=== PATIENT | female | born 1995 | race Caucasian/White ===

== ENCOUNTER → 2017-08-27 | Emergency (ER) | payer OTHER ==
[~2017-08-27] VITALS: Ht 160 cm; Wt 72.6 kg
[~2017-08-27] MED LIST: DICLOFENAC SODI50 MG PO; LOTRISONE CREAM45 GM TOP; PEPCID40 MG; PEPCID40 MG PO; PERCOCET 5/3251 TAB PO; PHENERGAN25 MG PO
== END | disposition home or self-care (01) ==
LOC: ER 22:48
DX: K52.89 Other specified noninfective gastroenteritis and colitis (principal); R10.84 Generalized abdominal pain; T62.8X1A Toxic effect of other specified noxious substances eaten as food, accidental (unintentional), initial encounter; Y92.89 Other specified places as the place of occurrence of the external cause

== ENCOUNTER 2017-11-07 21:46 | Emergency (ER) | payer OTHER ==
[~2017-11-07] VITALS: Ht 160 cm; Wt 77.1 kg
[2017-11-08] MEDS ORDERED: PEPCID40 MG PO (00:42)
[2017-11-08] MEDS ORDERED: ZOFRAN4 MG PO (00:42)
[2017-11-08] MEDS ORDERED: CEFTIN250 MG/5 M PO ×2 (00:42)
== END 2017-11-08 00:51 | disposition home or self-care (01) ==
LOC: ER 21:46
DX: K52.9 Noninfective gastroenteritis and colitis, unspecified (principal); R30.0 Dysuria

== ENCOUNTER 2018-02-16 19:19 | Emergency (ER) | payer OTHER ==
[~2018-02-16] VITALS: Ht 160 cm; Wt 73.5 kg
[~2018-02-16 19:19] MED LIST changes: +CEFTIN250 MG/5 M PO; +ZOFRAN4 MG PO
[2018-02-16] MEDS ORDERED: ZYRTEC10 M3 (19:42)
== END 2018-02-16 22:17 | disposition home or self-care (01) ==
LOC: ER 19:19
DX: J06.9 Acute upper respiratory infection, unspecified (principal)

== ENCOUNTER 2019-01-26 09:28 | Emergency (ER) | payer OTHER ==
[~2019-01-26] VITALS: Ht 157.5 cm; Wt 79.4 kg
[~2019-01-26 09:28] MED LIST changes: +ZYRTEC10 M3
== END 2019-01-26 14:45 | disposition home or self-care (01) ==
LOC: ER 09:28
DX: O20.0 Threatened abortion (principal)